=== PATIENT | male | born 1950 | race Caucasian/White ===

== ENCOUNTER 2021-04-18 15:00 | Outpatient (CLI) | payer MEDICARE, OTHER, SELFPAY ==
[2021-04-18 15:35] LABS: Basophils % 0.2 %; Eosinophils # 0.1 10^3/uL (0.0-0.8); Eosinophils % 1.2 %; Hematocrit 40.9 % (42.0-52.0); Lymphocytes # 1.4 10^3/uL (0.8-4.8); Lymphocytes % 32.9 %; Mean Corpuscular HGB Conc 31.8 g/dL (30.0-36.0); Mean Corpuscular Hemoglobin 31.3 pg (28.0-34.0); Mean Corpuscular Volume 98.3 fl (80-94); Mean Platelet Volume 10.3 fL (7.4-10.4); Monocytes # 0.4 10^3/uL (0.2-0.9); Monocytes % 10.4 %; Neutrophils # 2.28 10^3/uL (1.8-7.7); Neutrophils % 55.1 %; Nucleated Red Blood Cells % 0 %; Platelet Count 246 10^3/cmm (130-400); Red Blood Count 4.16 10^6/uL (4.1-5.3); Red Cell Distribution Width 13.5 % (12.1-15.1); White Blood Count 4.1 10^3/uL (4.0-10.0)
[2021-04-18 16:26] LABS: Alanine Aminotransferase 15 U/L (0-41); Albumin Level 3.9 g/dL (3.5-5.2); Alkaline Phosphatase 75 IU/L (40-130); Anion Gap 10.6 (5-19); Aspartate Amino Transferase 30 U/L (0-40); Blood Urea Nitrogen 16 mg/dL (8-23); C Reactive Protein 3.1 mg/L (0.0-4.9); Calcium 9.1 mg/dL (8.5-10.5); Carbon Dioxide 29 mmol/L (22-29); Chloride 104 mmol/L (98-107); Globulin 2.8 g/dL (1.3-4.6); Glucose 90 mg/dL (65-115); Osmolality Calculated 291 mOsm/kg (285-295); Potassium 3.6 mmol/L (3.5-5.1); Sodium 140 mmol/L (136-145); Thyroid Stimulating Hormone 0.79 uIU/mL (0.27-4.20); Total Bilirubin 0.2 mg/dL (0.15-1.2); Total Protein 6.7 g/dL (6.6-8.7); Vitamin B12 574 pg/mL (232-1245)
[2021-04-19 14:45] LABS: Erythrocyte Sedimentation Rate 9 mm/hr (0-10)
[2021-04-23 09:52] LABS: Methylmalonic Acid 140 nmol/L (87-318)
== END 2021-04-18 15:01 | disposition home or self-care (01) ==
PROVIDERS: PCP Pediatrics; Visit Provider Nurse Practitioner
DX: R25.1 Tremor, unspecified (principal)
CPT/HCPCS: 36415; 80053; 82607; 82746; 83921; 84443; 85025; 85651; 86140; 99203; 99204

== ENCOUNTER → 2021-05-16 10:40 | Outpatient (BNVA) | payer MEDICARE, OTHER, SELFPAY | PROVIDERS: PCP Pediatrics; Visit Provider Nurse Practitioner | DX: G25.0 Essential tremor (principal) | CPT/HCPCS: 99213; 99214 ==

== ENCOUNTER 2021-07-11 11:27 | Outpatient (CLI) | payer MEDICARE, OTHER, SELFPAY ==
--- NOTE | 2021-07-11 11:33 | XR_ITS ---
WS: [email or web address] LEFT FOOT: 2 VIEW(S) TECHNIQUE: AP and lateral. HISTORY: M25.50 - Pain in unspecified joint COMPARISON: None available. Status post screw fixation and bunionectomy first metatarsal. There is mild bunionectomy formation an d medial deviation of the first metatarsophalangeal joint. No erosions. No fractures. Normal tarsal/metatarsal alignment. No soft tissue abnormality or bone destruction. XR/XR foot LT 2V [id number] IMPRESSION: 1. Postsurgical screw fixation in the mid first metatarsal. 2. Mild medial deviation at the first metatarsophalangeal joint.
--- NOTE | 2021-07-11 11:33 | XR_ITS ---
WS: [email or web address] RIGHT HAND: 2 VIEW(S) TECHNIQUE: PA and lateral. HISTORY: R74.8 - Abnormal levels of other serum enzymes COMPARISON: None available. No acute fracture or dislocation. Diffuse interphalangeal joint space narrowing. There is also mild narrowing of the metacarpal phalang eal joints. Mild osteoarthritic changes at the first CMC joint. There is also advancing joint space n arrowing and sclerosis at the STT joint. No erosions. XR/XR hand RT 2V [id number] IMPRESSION: 1. Interphalangeal joint space narrowing without erosions. Findings most consi stent with mild to moderate arthritis of the hand. 2. Moderate osteoarthritic changes at the STT joint and mild at the first CMC joint.
--- NOTE | 2021-07-11 11:33 | XR_ITS ---
WS: [email or web address] LEFT HAND: 2 VIEW(S) TECHNIQUE: PA and lateral. HISTORY: R74.8 - Abnormal levels of other serum enzymes COMPARISON: None available. No acute fracture or dislocation. Mild diffuse interphalangeal joint space narrowing. Mild first CMC joint arthritis. Advanced joint sp momo narrowing with sclerosis involving the STT joint. No erosions. Mild soft tissue thickening at the PIP joints. Very mild narrowing of the radiocarpal yousif int. XR/XR hand LT 2V [id number] IMPRESSION: 1. Mild osteoarthritis throughout the hand. 2. Advanced STT joint arthritis.
--- NOTE | 2021-07-11 11:33 | XR_ITS ---
WS: [email or web address] RIGHT FOOT: 2 VIEW(S) TECHNIQUE: AP and lateral. HISTORY: M25.50 - Pain in unspecified joint COMPARISON: None available. No acute fracture or dislocation. Mild bunion formation at the first metatarsophalangeal joint. No erosions. Several hammertoe deformit ies. No calcaneal spur. No soft tissue abnormality or bone destruction. XR/XR foot RT 2V [id number] IMPRESSION: Hallux valgus deformity, mild. No fracture.
[2021-07-11 12:43] LABS: C Reactive Protein 2.5 mg/L (0.0-4.9); Complement C3 107 mg/dL (90-180); Creatine Phosphokinase 143 U/L (39-308)
[2021-07-11 12:51] LABS: Erythrocyte Sedimentation Rate 18 mm/hr (0-10)
[2021-07-11 13:08] LABS: Hepatitis B Core AB, Total Non-Reactive (Nonreactive); Hepatitis B Surface Antigen Non-Reactive (Nonreactive); Hepatitis C Virus Antibody Non-Reactive (Nonreactive)
[2021-07-12 13:13] LABS: THYROID PEROXIDASE ANTIBODIES 1 IU/mL (<9)
[2021-07-12 13:39] LABS: Cyclic Citrullinated Peptide <16 UNITS
[2021-07-12 14:58] LABS: CENTROMERE B ANTIBODY <1.0 NEG AI (<1.0 NEG); JO-1 ANTIBODY <1.0 NEG AI (<1.0 NEG); RNP ANTIBODY <1.0 NEG AI (<1.0 NEG); SCL-70 ANTIBODY <1.0 NEG AI (<1.0 NEG); SJOGREN'S ANTIBODY (SS-A) <1.0 NEG AI (<1.0 NEG); SM ANTIBODY <1.0 NEG AI (<1.0 NEG); SS-B <1.0 NEG AI (<1.0 NEG)
[2021-07-12 15:09] LABS: COMPLEMENT COMPONENT C3C 112 mg/dL (82-185); COMPLEMENT COMPONENT C4C 23 mg/dL (15-53)
[2021-07-13 11:23] LABS: ANA PATTERN Nuclear, Speckled; ANA SCREEN, IFA POSITIVE (NEGATIVE); ANA TITER 1:40 titer
[2021-07-13 14:22] LABS: COMPLEMENT, TOTAL (CH50) 56 U/mL (31-60)
[2021-07-17 11:43] LABS: DNA AB (DS) CRITHIDIA,IFA NEGATIVE (NEGATIVE)
[2021-07-20 14:22] LABS: ANCA Screen NEGATIVE (NEGATIVE)
== END 2021-07-11 11:28 | disposition home or self-care (01) ==
LOC: RAD 11:31
PROVIDERS: PCP Pediatrics; Visit Provider Internal Medicine
DX: M25.50 Pain in unspecified joint (principal); R74.8 Abnormal levels of other serum enzymes; Z11.59 Encounter for screening for other viral diseases; M19.042 Primary osteoarthritis, left hand; M19.041 Primary osteoarthritis, right hand; M20.11 Hallux valgus (acquired), right foot; Z98.890 Other specified postprocedural states; M20.12 Hallux valgus (acquired), left foot
CPT/HCPCS: 73120; 73620; 82550; 83516; 84182; 85651; 86140; 86160; 86162; 86200; 86235; 86255; 86376; 86431; 86704; 86803; 87340; 99204

== ENCOUNTER → 2021-07-24 10:08 | Outpatient (BNVA) | payer MEDICARE, OTHER, SELFPAY | PROVIDERS: PCP Pediatrics; Visit Provider Internal Medicine | DX: R21 Rash and other nonspecific skin eruption (principal); R76.8 Other specified abnormal immunological findings in serum; M19.90 Unspecified osteoarthritis, unspecified site | CPT/HCPCS: 99214 ==

== ENCOUNTER → 2021-09-28 09:28 | Outpatient (BNVA) | payer MEDICARE, OTHER, SELFPAY | PROVIDERS: PCP Pediatrics; Visit Provider Nurse Practitioner | DX: R25.1 Tremor, unspecified (principal) | CPT/HCPCS: 82525; 99213 ==

== ENCOUNTER 2021-12-13 11:01 | Outpatient (CLI) | payer MEDICARE, OTHER, SELFPAY ==
--- NOTE | 2021-12-13 11:45 | MR_ITS ---
WS: [id number] MRI BRAIN WITH AND WITHOUT CONTRAST HISTORY: R25.1 - Tremor, unspecified COMPARISON: None available. TECHNIQUE: Multiplanar imaging performed through the brain with MultiHance 17 ml's IV. No acute infarcts are seen. Randall-white matter differentiation is well preserved. Mild T2 and FLAIR si gnal abnormalities scattered throughout the white matter but slightly greater on the RIGHT. None of t hese areas in enhance and there is no hemorrhage. Very mild atrophy. No prior infarct. Ventricles and extra-axial spaces are normal. Clivus and pituitary gland are normal. Visualized posterior fossa and brainstem are also normal. Postcontrast images are negative for masses or vascular malformations. Dural venous sinuses are normal. Paranasal sinuses: Well aerated with no significant disease. Mastoid air cells: Normal. Calvarium and scalp: Normal. MR/MR head wo/w con [id number] IMPRESSION: 1. Normal MRI brain with contrast. 2. No acute infarct or metastatic disease. 3. Mild small vessel ischemic disease. No hemorrhage.
[2021-12-13 12:09] LABS: Blood Urea Nitrogen 11 mg/dL (8-23)
[2021-12-13] MEDS: gadobenate dimeglumine 20 mL vial IV (12:19)
== END 2021-12-13 11:02 | disposition home or self-care (01) ==
PROVIDERS: PCP Pediatrics; Visit Provider Nurse Practitioner
DX: R25.1 Tremor, unspecified (principal)
CPT/HCPCS: 70553; 82565; 84520

== ENCOUNTER → 2021-12-31 12:44 | Outpatient (BNVA) | payer MEDICARE, OTHER, SELFPAY | PROVIDERS: PCP Pediatrics; Visit Provider Nurse Practitioner | DX: R25.1 Tremor, unspecified (principal) | CPT/HCPCS: 99213 ==

== ENCOUNTER → 2022-06-05 09:57 | Outpatient (BNVA) | payer MEDICARE, OTHER, SELFPAY | PROVIDERS: PCP Pediatrics; Referring Provider Specialist; Visit Provider Nurse Practitioner | DX: G25.0 Essential tremor (principal); I78.9 Disease of capillaries, unspecified | CPT/HCPCS: 99213 ==

== ENCOUNTER → 2022-09-25 13:02 | Outpatient (BNVA) | payer MEDICARE, OTHER, SELFPAY | PROVIDERS: PCP Pediatrics; Visit Provider Nurse Practitioner | DX: R25.1 Tremor, unspecified (principal); R25.8 Other abnormal involuntary movements; R43.9 Unspecified disturbances of smell and taste | CPT/HCPCS: 99213 ==

== ENCOUNTER → 2023-02-04 13:28 | Outpatient (BNVA) | payer MEDICARE, OTHER, SELFPAY | PROVIDERS: PCP Pediatrics; Visit Provider Psychiatry & Neurology Neurology | DX: G25.0 Essential tremor (principal) | CPT/HCPCS: 99203 ==

== ENCOUNTER → 2023-04-01 14:28 | Outpatient (BNVA) | payer MEDICARE, OTHER, SELFPAY | PROVIDERS: PCP Pediatrics; Visit Provider Psychiatry & Neurology Neurology | DX: G25.0 Essential tremor (principal) | CPT/HCPCS: 99212 ==

== ENCOUNTER → 2023-09-03 14:41 | Outpatient (BNVA) | payer MEDICARE, OTHER, SELFPAY | PROVIDERS: PCP Pediatrics; Visit Provider Psychiatry & Neurology Neurology | DX: G25.0 Essential tremor (principal) | CPT/HCPCS: 99212 ==

== ENCOUNTER → 2023-12-15 13:34 | Outpatient (BNVA) | payer MEDICARE, OTHER, SELFPAY | PROVIDERS: PCP Pediatrics; Visit Provider Psychiatry & Neurology Neurology | DX: G25.0 Essential tremor (principal); I73.9 Peripheral vascular disease, unspecified; M19.90 Unspecified osteoarthritis, unspecified site; R76.8 Other specified abnormal immunological findings in serum; R21 Rash and other nonspecific skin eruption; R74.8 Abnormal levels of other serum enzymes; D64.9 Anemia, unspecified; E55.9 Vitamin D deficiency, unspecified; D51.9 Vitamin B12 deficiency anemia, unspecified | CPT/HCPCS: 36415; 82306; 82607; 83735; 83921; 84207; 84425; 84439; 84443; 84481; 84591; 99212 ==

== ENCOUNTER → 2024-04-05 14:39 | Outpatient (BNVA) | payer MEDICARE, OTHER, SELFPAY | PROVIDERS: PCP Pediatrics; Visit Provider Psychiatry & Neurology Neurology | DX: G25.0 Essential tremor (principal); I73.9 Peripheral vascular disease, unspecified; M19.90 Unspecified osteoarthritis, unspecified site; R76.8 Other specified abnormal immunological findings in serum; R21 Rash and other nonspecific skin eruption; R74.8 Abnormal levels of other serum enzymes; D64.9 Anemia, unspecified; E55.9 Vitamin D deficiency, unspecified | CPT/HCPCS: 99212 ==

== ENCOUNTER → 2024-10-04 13:31 | Outpatient (BNVA) | payer MEDICARE, OTHER, SELFPAY | PROVIDERS: PCP Pediatrics; Visit Provider Psychiatry & Neurology Neurology | DX: G25.0 Essential tremor (principal); I73.9 Peripheral vascular disease, unspecified; M19.90 Unspecified osteoarthritis, unspecified site; R76.8 Other specified abnormal immunological findings in serum; R21 Rash and other nonspecific skin eruption; R74.8 Abnormal levels of other serum enzymes; D64.9 Anemia, unspecified; E55.9 Vitamin D deficiency, unspecified | CPT/HCPCS: 99212 ==

== ENCOUNTER → 2025-05-24 13:44 | Outpatient (BNVA) | payer MEDICARE, OTHER, SELFPAY | PROVIDERS: PCP Pediatrics; Visit Provider Specialist | DX: G25.0 Essential tremor (principal) | CPT/HCPCS: 99215 ==